=== PATIENT | male | born 1950 | race Caucasian/White ===

== ENCOUNTER 2017-07-20 12:12 | Outpatient (CLI) | payer MEDICARE, OTHER ==
[2017-07-20 13:18] LABS: Bilirubin Negative (Negative); Blood, Urine Negative (Negative); Clarity CLEAR (Clear); Glucose, Urine (Dipstick) Negative (Negative); Leukocyte Negative (Negative); Nitrite Negative (Negative); Protein, Urine (Dipstick) Negative (Neg-Trace); Specific Gravity, Urine 1.022 (1.002-1.036); Urobilinogen 0.2 mg/dL (0.2-1.0)
[2017-07-20 13:21] LABS: #Basophils 0.1 thou/uL (0.0-0.2); #Eosinphils 0.1 thou/uL (0.0-0.7); #Monocytes 0.4 thou/uL (0.11-0.59); #Neutrophils 3.3 thou/uL (1.40-6.50); %Basophils 1.3 % (0.0-1.0); %Eosinophils 2.3 % (0.0-10.0); %Lymphocytes 33.4 % (21.0-51.0); Hemoglobin 14.5 g/dL (14.0-18.0); Mean Corpuscular HGB CONC 32.6 g/dL (32.0-36.0); Mean Corpuscular Hemoglobin 27.1 pg (27.0-31.0); Mean Corpuscular Volume 83.1 fl (80.0-94.0); Mean Platelet Volume 7.6 fL (7.4-10.4); Platelet Count 198 thou/uL (130-400); RBC Distribution Width 12.2 % (11.5-14.5); Red Blood Cell (RBC) Count 5.35 mill/uL (4.70-6.10); White Blood Cell (WBC) Count 5.9 thou/uL (4.8-10.8)
[2017-07-20 13:22] LABS: Bacteria/HPF None Seen HPF (None Seen); Hyaline Casts/LPF 0-3 HYALINE CAST LPF (0-3 Hyaline); RBC/HPF 0-3 HPF (0-3); Squamous Epithelial None Seen HPF (0-3); WBC/HPF 0-3 HPF (0-3)
[2017-07-20 13:37] LABS: Anion Gap 12 mmol/L (10-20); BUN (Urea Nitrogen) 17 mg/dL (8.4-25.7); Calc. Creatinine Clearance 0 mL/min (70-130); Calcium 9.6 mg/dL (7.8-10.44); Carbon Dioxide 27 mmol/L (23-31); Chloride 106 mmol/L (98-107); Estimated GFR-MDRD 69; Glucose 100 mg/dL (80-115); Sodium 141 mmol/L (136-145)
--- NOTE | 2017-07-20 13:46 | RAD ---
CHEST TWO VIEWS: HISTORY: Preoperative exam. COMPARISON: None. FINDINGS: Normal cardiac silhouette. The pulmonary vessels and hilum are normal. the costophrenic angles are clear. No mass. No consolidation. No pneumothorax or osseous abnormalities. IMPRESSION: No acute cardiopulmonary process. POS: [facility]
--- NOTE | 2017-07-22 00:20 | EKG ---
Test Reason : Blood Pressure : / mmHG Vent. Rate : 062 BPM Atrial Rate : 062 BPM P-R Int : 170 ms QRS Dur : 100 ms QT Int : 374 ms P-R-T Axes : 044 074 010 degrees QTc Int : 379 ms Normal sinus rhythm ST abnormality, possible digitalis effect Abnormal ECG When compared with ECG of 02-MAY-2014 10:17, No significant change was found Confirmed by Kim KLEIN ([id number]) on 07/22/2017 12:20:06 AM Referred By: QUYEN Confirmed By:Kim KLEIN
== END 2017-07-20 12:13 | disposition home or self-care (01) ==
LOC: LABBT 12:12
PROVIDERS: ATTEND Orthopaedic Surgery Hand Surgery
DX: Z01.812 Encounter for preprocedural laboratory examination (principal); Z01.810 Encounter for preprocedural cardiovascular examination; Z01.818 Encounter for other preprocedural examination; M19.042 Primary osteoarthritis, left hand; Z88.8 Allergy status to other drugs, medicaments and biological substances
CPT/HCPCS: 71046; 80048; 81001; 85025; 85652; 85730; 93005; 93010

== ENCOUNTER 2017-07-22 06:45 | Day surgery (SDC) | payer MEDICARE, OTHER ==
[2017-07-20 12:30] VITALS: BMI 26.6
[2017-07-22] MEDS ORDERED: Midazolam HCl 2 mg/2 ml Vial ONE ×2 (08:38→08:57)
[2017-07-22] MEDS ORDERED: Fentanyl 100 MCG/2 ML VIAL ONE ×2 (08:38→08:57)
[2017-07-22] MEDS ORDERED: CEFAZOLIN/Water 2 GM/20 ML SYRINGE ONE (08:46)
[2017-07-22] MEDS ORDERED: Bupivacaine PF 0.5% 30 ML VIAL ONE (08:58)
[2017-07-22] MEDS ORDERED: Sodium Chloride 0.9% 10 ML ONE (08:58)
[2017-07-22] MEDS ORDERED: Betamet Acet/Betamet Na Ph 30 MG/5 ML VIAL ONE (08:58)
[2017-07-22] MEDS ORDERED: Zolpidem Tartrate 5 MG TAB PO PRN (09:22)
[2017-07-22] MEDS ORDERED: traMADol HCl 50 MG TAB PO PRN ×2 (09:22)
[2017-07-22] MEDS ORDERED: Ondansetron HCl/PF 4 MG/2 ML Vial IVP PRN (09:22)
[2017-07-22] MEDS ORDERED: Ropivacaine 0.2% 550 ML 550 ML NERVE BLCK SCH (09:22)
[2017-07-22] MEDS ORDERED: HYDROcodone/Acetaminophen 10/325 mg Tablet PO PRN ×2 (09:22)
[2017-07-22] MEDS ORDERED: Ketorolac Tromethamine 30 MG/ML VIAL IVP PRN (09:22)
[2017-07-22] MEDS ORDERED: Fentanyl 100 MCG/2 ML VIAL IV PRN (09:22)
[2017-07-22] MEDS ORDERED: Promethazine HCl 25 MG/ML VIAL IM PRN (09:22)
[2017-07-22] MEDS ORDERED: Bacitracin Zinc Ointment 30 gm TUBE ONE (10:00)
--- NOTE | 2017-07-22 13:13 | RAD ---
LEFT HAND RADIOGRAPHS 2 VIEWS: DATE: 07/22/17. PROVIDED CLINICAL HISTORY: PIP joint release. FINDINGS: Two spot fluoroscopic images of the radial aspects of a portion of the left hand submitted. Postoper ative changes of 2nd and 3rd PIP arthroplasty are demonstrated. Arthrosis involving the ring digit P IP joint is visualized. IMPRESSION: As above. POS: [facility]
[2017-07-22] MEDS ORDERED: Ketorolac Tromethamine 30 MG/ML VIAL ONE (13:40)
[2017-07-22] MEDS ORDERED: Ropivacaine 0.5% HCl/PF (150 MG/30 ML VIAL) ONE (13:46)
--- NOTE | 2017-07-23 00:28 | OP ---
DATE OF PROCEDURE: 07/22/2017 PREOPERATIVE DIAGNOSES: 1. 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 2. 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 FINDINGS: Some large osteophytes in all aspects especially dorsally, proximal aspect and palmarly di stal aspect of all joints listed, proximal phalangeal joint index finger, long finger with marked syn ovitis. PROCEDURES PERFORMED: 1. Synovectomy, left middle finger and proximal phalangeal joint. 2. Total joint arthroplasty, left middle finger proximal phalangeal joint. 3. Failed revision left middle finger. These are all the middle finger procedures. Index finger: 1. Arthrotomy with synovectomy index finger proximal joint. 2. Total joint replacement, proximal phalangeal joint for osteoarthritis, left index finger. 3. Left index finger, C-arm supervision less than 1 hour. IMPLANTABLES: 1. Underwent right Giorgio Millington implant with a Silastic type. 2. Kay implant. COMPLICATIONS: None. BLOOD LOSS: 50 mL. TOURNIQUET TIME: 20 minutes. Again, the findings were very thick osteophytes along all aspects of both joints on both digits with synovial changes. DESCRIPTION OF PROCEDURE: After successful general endotracheal anesthesia, limb was prepped and alison ped. The patient also had a block, which was performed with an indwelling should last 8-12 hours pos top. He then had timeout, then properly identified the left index and little finger proximal phalang eal joints. Outlined incisions here began with the long finger. After the limb was exsanguinated, tourniquet inflated to 250 mmHg pressure. A zigzag incision was ma de, centered over the proximal phalangeal joint, leaving the actual joint dorsal surface with our dec ision in the zigzag pattern. We then carried through the skin, subcutaneous tissue, and underneath t he extensor make this large amount of synovitis, so we performed a Z-plasty type incision of the exte nsor mechanism and retracted it distally in palm to expose the joint. We completed the joint debride ment and synovial biopsy and then the joint was exposed. A Z was made in the extensor mechanism and it was flipped proximal and also exposed the joint. We then removed all of the osteophytes which wer e plentiful, both dorsal and palmar radial and ulnar on the base of the proximal phalanx and dorsal p rimarily radial on the neck and distally of the proximal phalanx. The patient then had the saw broug ht into the field, then made a mini box type cut was complete on all four corners of the neck and hea d of the proximal phalanx. Localized collateral ligaments and tagged them with a 4-0 Prolene and then exposed the joint in full flexion to remove the osteophytes dorsal, palmar, radial and ulnar on the base of proximal phalanx. He had the flexor tendon and extensor tendon insertions, all of these remained intact. Now we had adequate space. We then used a rongeur to remove all of the concave surface of the base o f the middle phalanx and then we completed saw cuts, removed in a box cut pattern all of the chondral surface on the neck and head of the proximal phalanx. We then progressively reamed with hand broach ing from the starter broach to the two and then #3, but #3 we could not completely get in, so the siz e that would fit would be 2. It was placed in, final radiographs obtained and show excellent cut spa ce, excellent congruence and even 80 degrees of flexion. We then had removed the trial, we drilled 2 holes on either side, radial ulnar aspect and base of the proximal phalanx of this in the neck and h ead of the proximal phalanx of his left middle finger and then attached via heavy 4-0 Prolene the col lateral back the bone. We then placed the final prosthesis in appropriate flexion, raised to 2-3 isabela es, we closed this extensor mechanism that was good and intact. We then closed the extensor mechanis m only with a running 4-0 Prolene, then we turned attention to the ipsilateral index finger. He had the same incision was outlined. A tourniquet was still up, so we did limbs then released. We did not release the tourniquet and we were able to use the same disease incision to expose the proxi mal edge of the joint. The mirror image procedure was done on the long finger. The left middle fing er was now accomplished here on the ring finger. This allowed the patient to have procedure on ce again and the tourniquet was deflated. We closed in layers first with a 4-0 nylon epidermal layer which over-sewed a Vicryl layer repair. We then had the patient placed in a bulky dressing with a s plint palmar and left the operating room without evidence of anesthetic or operative complication.
== END 2017-07-22 15:49 | disposition home or self-care (01) ==
LOC: SDC 06:45
PROVIDERS: ATTEND Orthopaedic Surgery Hand Surgery
PROC: 0RBX0ZZ Excision of Left Finger Phalangeal Joint, Open Approach (ICD-10-PCS; principal; 2017-07-22)
PROC: 0RRX0JZ Replacement of Left Finger Phalangeal Joint with Synthetic Substitute, Open Approach (ICD-10-PCS; 2017-07-22)
DX: M19.042 Primary osteoarthritis, left hand (principal); M25.742 Osteophyte, left hand; M65.9 Synovitis and tenosynovitis, unspecified; K21.9 Gastro-esophageal reflux disease without esophagitis; I10 Essential (primary) hypertension; H91.90 Unspecified hearing loss, unspecified ear; G47.30 Sleep apnea, unspecified; Z79.899 Other long term (current) drug therapy; Z99.89 Dependence on other enabling machines and devices; Z88.5 Allergy status to narcotic agent; Z90.49 Acquired absence of other specified parts of digestive tract; Z98.890 Other specified postprocedural states; Z85.828 Personal history of other malignant neoplasm of skin
CPT/HCPCS: 26140; 26535; 73130; 76001; 96372; A4306; C1776; A4216; J0131; J0702; J1885; J2250; J2795; J3010; J3490; S0020

== ENCOUNTER 2021-02-09 13:28 | Outpatient (CLI) | payer MEDICARE, OTHER | END 2021-02-09 13:29 | disposition home or self-care (01) | LOC: BICRAD 13:28 | PROVIDERS: ATTEND Internal Medicine Critical Care Medicine | DX: R06.00 Dyspnea, unspecified (principal) | CPT/HCPCS: 71046 ==